=== PATIENT | female | born 2000 | race African-American/Black ===

== ENCOUNTER 2018-11-21 15:42 | Emergency (ER) | payer SELFPAY ==
[~2018-11-21] VITALS: Ht 157.5 cm; Wt 64.4 kg
[2018-11-21] MEDS ORDERED: PRENATAL 19 TA1 EAC1 PO (15:56)
--- NOTE | 2018-11-21 16:16 | Emergency Room Report ---
History of Present Illness General Chief Complaint: Complications Source: Patient Present Illness HPI 17-year-old female who is 7 months with a due date of February 21, 2019 here complaining of bilateral suprapubic pain x3 days with urinary frequency rating the pain intermittent without radiation rating of 5 out of 10. Patient reports that she just got back from [facility] 1 month ago and was therefore 6 months and did some OB visits there and had blood work done however the ultrasound results was never discussed with her other than the fact that she is getting a baby boy. Patient denies any vaginal bleeding, spotting, discharge, dysuria, hematuria. Patient denies any nausea vomiting diarrhea. Takes her vitamins every day and reports that she does not drink any alcohol nor smokes. Denies chest pain, shortness of breath, palpitation, dizziness and headache. Denies fever and chills. Patient does not have established ALUMINIZER in [facility]. With pending status. She is G1, P0 Allergies: Coded Allergies: No Known Allergies (Unverified , 11/21/18) Patient History Past Medical History: see triage record Past Surgical History: unable to obtain Pertinent Family History: none Now: Yes - 7 month Immunizations: UTD Reviewed Nursing Documentation: PMH: Agreed; PSxH: Agreed Nursing Documentation-PMH Past Medical History: No Stated History Review of Systems All Other Systems: negative except mentioned in HPI Physical Exam Vital Signs Date Time Temp Pulse Resp B/P (MAP) Pulse Ox O2 Delivery O2 Flow Rate FiO2 11/21/18 15:48 97.9 70 16 110/72 (85) 100 Room Air Sp02 EP Interpretation: reviewed, normal General Appearance: normal inspection, well appearing, no apparent distress, alert, GCS 15 Head: normocephalic, atraumatic Eyes: bilateral eye normal inspection, bilateral eye PERRL ENT: normal ENT inspection, hearing grossly normal, normal pharynx, no angioedema Neck: normal inspection, full range of motion, supple, no meningismus Respiratory: normal inspection, lungs clear, no respiratory distress, no wheezing Cardiovascular #1: normal inspection, regular rate, rhythm, no gallop, no murmur, normal capillary refill Cardiovascular #2: 2+ dorsalis pedis (R), 2+ dorsalis pedis (L) Gastrointestinal: normal bowel sounds, non tender, no mass, no organomegaly, no peritonitis, no guarding, no hernia, no pulsatile mass, no rebound, other - Gravid abdomen Rectal: deferred Genitourinary: no CVA tenderness, ext genitalia/vag normal Musculoskeletal: normal inspection, back normal Neurologic: normal inspection, alert, oriented x3, responsive Psychiatric: normal inspection, judgement/insight normal Skin: no rash, palpation normal Lymphatic: normal inspection, no adenopathy Medical Decision Making PA Attestation All diagnoses and treatment plans were reviewed and discussed with my supervising physician Dr. Bernal Diagnostic Impression: Primary Impression: Abdominal pain during ER Course 17-year-old female who is 7 months with a due date of February 21, 2019 here complaining of bilateral suprapubic pain x3 days with urinary frequency rating the pain intermittent without radiation rating of 5 out of 10. Patient reports that she just got back from [facility] 1 month ago and was therefore 6 months and did some OB visits there and had blood work done however the ultrasound results was never discussed with her other than the fact that she is getting a baby boy. Patient denies any vaginal bleeding, spotting, discharge, dysuria, hematuria. Patient denies any nausea vomiting diarrhea. Takes her vitamins every day and reports that she does not drink any alcohol nor smokes. Denies chest pain, shortness of breath, palpitation, dizziness and headache. Denies fever and chills. Patient does not have established ALUMINIZER in [facility]. With pending status. She is G1, P0 Ddx considered but are not limited to: appendicitis, cholycisitis, gastritis, gasthroentritis, UTI, pylonephritis, SBO, diverticulitis, influenza with GI manifestation, NH, complication with Vital signs: are WNL, pt. is afebrile H&PE are most consistent with: Abdominal pain during unspecified ORDERS: OB ultrasound, CBC, CMP, UA, urine tox screen, beta hCG, Rh type and cross ED INTERVENTIONS: None required at this time. DISCHARGE: At this time pt. is stable for d/c to home. Will provide printed patient care instructions, and any necessary prescriptions. Care plan and follow up instructions have been discussed with the patient prior to discharge. Take Tylenol for pain follow-up with your ALUMINIZER if worsening pain or any vaginal spotting or bleeding return to the emergency room CT/MRI/US Diagnostic Results CT/MRI/US Diagnostic Results : Imaging Test Ordered: OB ultrasound Impression 25 weeks and 0 days , placenta is posterior no hemorrhage is noted, heart rate 148 Last Vital Signs Date Time Temp Pulse Resp B/P (MAP) Pulse Ox O2 Delivery O2 Flow Rate FiO2 11/21/18 15:48 97.9 70 16 110/72 (85) 100 Room Air Disposition: HOME, SELF-CARE Condition: Stable Referrals: NOT CHOSEN IPA/MD,REFERRING (PCP) Patient Instructions: Abdominal Pain During , [id number] Additional Instructions: Take Tylenol for pain follow-up with your ALUMINIZER if worsening pain or any vaginal spotting or bleeding return to the emergency room Faisal Guerra Nov 21, 2018 16:16
[2018-11-21 16:44] LABS: BASOPHILS % (AUTO) 0.8 % (0.0-2.0); EOSINOPHILS % (AUTO) 3.1 % (0.0-3.0); HEMATOCRIT 35.1 % (37.0-47.0); LYMPHOCYTES % (AUTO) 21.5 % (20.0-45.0); MEAN CORPUSCULAR VOLUME 96 FL (80-99); MONOCYTES % (AUTO) 9.2 % (1.0-10.0); NEUTROPHILS % (AUTO) 65.5 % (45.0-75.0); PLATELET COUNT 277 K/UL (150-450); RED BLOOD COUNT 3.66 M/UL (4.20-5.40); RED CELL DISTRIBUTION WIDTH 11.1 % (11.6-14.8); WHITE BLOOD COUNT 9.5 K/UL (4.8-10.8)
[2018-11-21 16:46] LABS: APPEARANCE,URINE CLEAR; BILIRUBIN, URINE NEGATIVE (NEGATIVE); COLOR,URINE PALE YELLOW; GLUCOSE, URINE (UA) NEGATIVE (NEGATIVE); KETONES,URINE 1+ (NEGATIVE); LEUKOCYTE ESTERASE ,URINE 1+ (NEGATIVE); NITRITE,URINE NEGATIVE (NEGATIVE); PH,URINE 7 (4.5-8.0); PROTEIN,URINE 1+ (NEGATIVE); UROBILINOGEN,URINE NORMAL MG/DL (0.0-1.0)
--- NOTE | 2018-11-21 16:47 | NUR ---
ED Nurse Note: Received pt c/o bilateral abdominal pain, relates she is 7 months with care. Denies vaginal bleeding/burning sensation when urinating. Tolerated IV and blood draw. No n/v/d at this time.
[2018-11-21 16:57] LABS: ANION GAP 10 mmol/L (5-15); BLOOD UREA NITROGEN 6 mg/dL (7-18); CALCIUM 9.1 MG/DL (8.5-10.1); CARBON DIOXIDE 25 MMOL/L (21-32); CHLORIDE 103 MMOL/L (98-107); CREATININE 0.6 MG/DL (0.55-1.30); POTASSIUM 3.9 MMOL/L (3.5-5.1); SODIUM 138 MMOL/L (136-145)
[2018-11-21 17:02] LABS: ALANINE AMINOTRANSFERASE 11 U/L (12-78); ALBUMIN 3.6 G/DL (3.4-5.0); ALBUMIN/GLOBULIN RATIO 0.9 (1.0-2.7); ALKALINE PHOSPHATASE 107 U/L (46-116); ASPARTATE AMINO TRANSFERASE 11 U/L (15-37); BILIRUBIN,TOTAL 0.2 MG/DL (0.2-1.0)
--- NOTE | 2018-11-21 17:37 | Diagnostic Imaging Report ---
Indication: Abdominal pain, patient Technique: Grayscale and duplex images of the uterus, adnexal structures, and fetus Comparison: none Findings: There is a single live intrauterine . This demonstrates a posterior fundal placenta which clears the internal cervical os. There is positive heart activity, heart rate 148 bpm normal amniotic fluid volume, amniotic fluid index 20.2 cm. The cervix is closed, endocervical canal measuring approximately 3.5 cm in length. Presentation is cephalic. measurements as follows: Biparietal diameter 6.5 cm, 26 weeks one day; head circumference 22.9 cm, 25 weeks zero days; abdominal circumference 21.7 cm, 26 weeks 2 days; femur length 4 cm, 22 weeks 5 days. Estimated gestational age by average ultrasound measurements is 25 weeks zero days. Estimated gestational age by dates is 25 weeks 2 days. Estimated date of delivery is 03/06/2019 Only limited evaluation of the structures performed, due to emergent nature of the exam. Normal four-chamber heart, insertion, three-vessel cord, spine are demonstrated. Neither ovary could be demonstrated. No free cul-de-sac fluid noted Impression: 25 weeks zero day, by average ultrasound measurements, single live intrauterine . No unusual features
[2018-11-21 17:59] VITALS: BP 104/63
--- NOTE | 2018-11-21 18:03 | NUR ---
ER DISCHARGE NOTE: Patient is cleared to be discharged per ERMD, pt is aox4, on room air, with stable vital signs. pt was given dc instructions, pt was able to verbalize understanding, pt id band and iv site removed without complications. pt is able to ambulate with steady gait. pt took all belongings.
== END 2018-11-21 18:00 | disposition home or self-care (01) ==
LOC: EMR 16:07
DX: O26.92 Pregnancy related conditions, unspecified, second trimester (principal); Z3A.25 25 weeks gestation of pregnancy; R10.9 Unspecified abdominal pain
CPT/HCPCS: 36415; 76805; 80053; 80307; 81001; 82962; 83690; 84702; 85025; 86850; 86900; 86901; 99284